=== PATIENT | female | born 1995 | race African-American/Black ===

== ENCOUNTER 2017-05-24 07:13 | Emergency (ER) | payer MEDICAID, OTHER ==
[~2017-05-24] VITALS: Ht 170.2 cm; Wt 92.5 kg
[2017-05-24 07:30] VITALS: BP 124/94
== END 2017-05-24 07:44 | disposition left against medical advice (07) ==
LOC: ER 07:13
DX: O26.891 Other specified pregnancy related conditions, first trimester (principal); R10.30 Lower abdominal pain, unspecified; Z3A.00 Weeks of gestation of pregnancy not specified